=== PATIENT | male | born 1990 | race African-American/Black ===

== ENCOUNTER 2024-10-01 06:10 | Inpatient (IN) | payer OTHER ==
[2024-10-01] MEDS ORDERED: FAMOTIDINE 20 MG/2 ML VIAL IV ONE (07:14)
[2024-10-01] MEDS ORDERED: ONDANSETRON 4 MG/2 ML VIAL ONE ×2 (07:14→14:21)
[2024-10-01] MEDS ORDERED: MORPHINE 4 MG/ML SYR ONE ×3 (07:14→09:19)
[2024-10-01] MEDS ORDERED: NA CHLORIDE 0.9% 1,000 ML ONE (07:14)
[2024-10-01 07:27] LABS: Specific Gravity 1.018 (1.005-1.030); Urine Bilirubin NEGATIVE (Negative); Urine Blood Negative (Negative); Urine Clarity Clear (Clear); Urine Color Light-Yellow (Yellow); Urine Glucose NEGATIVE (Negative); Urine Ketones NEGATIVE (Negative); Urine Microscopic Reflex YN NO UMIC; Urine Nitrite NEGATIVE (Negative); Urine Protein NEGATIVE (Negative); Urine Urobilinogen Normal (Normal)
[2024-10-01 07:28] LABS: Absolute Eosinophils 0.1 K/uL (0-0.5); Absolute Lymphocytes (CBC) 0.7 K/uL (0.7-4.9); Absolute Monocytes 0.4 K/uL (0.1-1.3); Absolute Neutrophil 3.5 K/uL (1.8-8.0); Basophils % 0.2 % (0-1.3); Eosinophils % 1.8 % (0-4.4); Hematocrit 42.6 % (39.6-49.0); Hemoglobin 14.5 g/dL (13.6-17.9); Lymphocytes % 15.6 % (15.3-44.8); MCHC 33.9 g/dL (32.0-36.0); MCV 85.4 fL (80-100); MPV 7.8 fL (7.6-11.3); Monocytes % 7.8 % (3.3-12.3); Neutrophils % 74.6 % (41.7-73.7); Nucleated Red Blood Cells % 0.2 % (0-0); Platelets 159 thou/uL (152-406); RBC Red Blood Cell Count 4.99 M/uL (4.33-5.43); Red Cell Distribution Width 14.7 % (12.1-15.2)
[2024-10-01] MEDS ORDERED: CIPROFLOXACIN 400mg IV 400 MG/200 ML BAG IV ONE (07:28)
[2024-10-01] MEDS ORDERED: METRONIDAZOLE 500mg IVPB 500 MG/100 ML BAG IV ONE (07:29)
[2024-10-01 07:42] LABS: Albumin 3.8 g/dL (3.4-5.0); Anion Gap 7.8 mEq/L (5.0-15.0); Bilirubin Total 1.5 mg/dL (0.2-1.0); Globulin 3.7 g/dL (2.3-3.5); Potassium 3.8 mEq/L (3.5-5.1); Protein, Total 7.5 g/dL (6.4-8.2)
--- NOTE | 2024-10-01 09:11 | ER ---
Nurse's Notes [facility] Name: Gary Francis Age: 34 yrs Sex: Male : 1990 Arrival Date: 10/01/2024 Time: 06:10 Bed 3 Private MD: Diagnosis: Acute appendicitis with localized peritonitis Presentation: 10/01 06:39 Chief complaint: Patient states: C/O AB PAIN (ALL OVER) SINCE THURSDAY.. PT DENIES br2 N/V/D. 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 Coronavirus screen: Client denies travel out of the [place] in the last 14 days. Ebola Screen: Patient denies exposure to infectious person. Initial Sepsis Screen: Does the patient meet any 2 criteria? No. Patient's initial sepsis screen is negative. Does the patient have a suspected source of infection? No. Patient's initial sepsis screen is negative. Risk Assessment: Do you want to hurt yourself or someone else? Patient reports no desire to harm self or others. Onset of symptoms was September 29, 2024. 06:39 Method Of Arrival: Ambulatory br2 06:39 Acuity: NATASHA 3 br2 Historical: - Allergies: 06:41 No Known Allergies; br2 - Immunization history:: Adult Immunizations not up to date. - Infectious Disease History:: Denies. - Social history:: Smoking status: Reported history of juuling and/or vaping. Patient uses alcohol, occasionally. - Family history:: not pertinent. Screenin:07 [facility] ED Fall Risk Assessment (Adult) History of falling in the last 3 months, ay including since admission No falls in past 3 months (0 pts) Confusion or Disorientation No (0 pts) Intoxicated or Sedated No (0 pts) Impaired Gait No (0 pts) Mobility Assist Device Used Yes (1 pt) Altered Elimination No (0 pt) Score/Fall Risk Level 0 - 2 = Low Risk Oriented to surroundings, Maintained a safe environment, Educated pt \T\ family on fall prevention, incl call for assistance when getting out of bed. Abuse screen: Denies threats or abuse. Nutritional screening: No deficits noted. Tuberculosis screening: No symptoms or risk factors identified. Assessment: 07:07 General: Appears in no apparent distress. uncomfortable, Behavior is calm, cooperative. ay Pain: Complains of pain in abdomen. Neuro: Level of Consciousness is awake, alert, obeys commands, Oriented to person, place, time, situation, Speech is normal. Cardiovascular: Denies chest pain, nausea, vomiting, Capillary refill < 3 seconds. Respiratory: Airway is patent Respiratory effort is even, unlabored, Respiratory pattern is regular, symmetrical. GI: Bowel sounds present X 4 quads. Abd is soft Abdomen is tender to palpation in epigastric area. : No signs and/or symptoms were reported regarding the genitourinary system. EENT: No signs and/or symptoms were reported regarding the EENT system. Derm: No signs and/or symptoms reported regarding the dermatologic system. 07:28 General: Appears in no apparent distress. comfortable, Behavior is calm, cooperative, ld1 appropriate for age. Pain: Complains of pain in right upper quadrant and right lower quadrant Pain radiates to left upper quadrant Pain currently is 8 out of 10 on a pain scale. Quality of pain is described as sharp, shooting, throbbing, Pain began 1 day ago. Neuro: Level of Consciousness is awake, alert, obeys commands, Oriented to person, place, time, situation. Cardiovascular: Capillary refill < 3 seconds Patient's skin is warm and dry. Respiratory: Airway is patent Respiratory effort is even, unlabored. GI: Abdomen is round non-distended, Abdomen is tender to palpation in right upper quadrant and right lower quadrant Reports lower abdominal pain, upper abdominal pain. 12:01 Reassessment: Patient appears in no apparent distress at this time. No changes from ld1 previously documented assessment. Patient and/or family updated on plan of care and expected duration. Pain level reassessed. Patient is alert, oriented x 3, equal unlabored respirations, skin warm/dry/pink. Vital Signs: 06:39 BP 132 / 80; Pulse 83; Resp 18; Temp 97.5(TE); Pulse Ox 97% on R/A; Weight 95.25 kg; br2 Height 5 ft. 7 in. ; Pain 10/10; 07:07 BP 131 / 71; Pulse 80; Resp 19; Pulse Ox 99% ; ay 07:28 BP 136 / 82; Pulse 68; Resp 18; Pulse Ox 99% on R/A; Pain 8/10; ld1 09:00 BP 125 / 76; Pulse 71; Resp 18; Pulse Ox 100% on R/A; ld1 12:03 BP 132 / 81; Pulse 79; Resp 18; Pulse Ox 100% on R/A; ld1 06:39 Body Mass Index 32.89 (95.25 kg, 170.18 cm) br2 06:39 Pain Scale: Adult br2 07:28 Pain Scale: Adult ld1 ED Course: 06:20 Patient arrived in ED. [id number] 06:41 Triage completed. br2 07:03 Ernesto Nicole MD is Attending Physician. rosalina 07:07 Onelia Haque, TONIA is Primary Nurse. ay 07:07 Inserted saline lock: 20 gauge in right antecubital area, using aseptic technique. ay 07:27 Urinalysis w/ reflexes Sent. ld1 07:28 No provider procedures requiring assistance completed. ld1 07:28 Patient has correct armband on for positive identification. Placed in gown. Bed in low ld1 position. Call light in reach. Side rails up X2. ekg monitor on. Pulse ox on. NIBP on. Door closed. Noise minimized. Warm blanket given. 08:14 CT Abd/Pelvis - IV Contrast Only In Process Unspecified. EDMS 09:10 Mo Luong MD is Hospitalizing Provider. rosalina 12:02 Patient admitted, IV remains in place. ld1 12:02 Arm band placed on right wrist. ld1 Administered Medications: 07:28 Drug: Famotidine IVP 20 mg IVP once; dilute with 10 mL 0.9% NaCl; give over 2 minutes ld1 Route: IVP; Site: right antecubital; 07:28 Drug: Ondansetron IVP 4 mg IVP once; over 2 minutes Route: IVP; Site: right antecubital;ld1 07:28 Drug: morphine IVP or IV 4 mg IVP once over 4 mins Route: IVP; Infused Over: 4 mins; ld1 Site: right antecubital; 07:28 Drug: NS 0.9% IV 1000 ml IV at 1 bolus Per protocol; to be given as a bolus over 60 ld1 minutes Route: IV; Rate: 1 bolus; Site: right antecubital; 07:34 Drug: metroNIDAZOLE IVPB 500 mg 100 ml IVPB at 200 ml/hr once over 30 mins Volume: 100 iw ml; Route: IVPB; Rate: 200 ml/hr; Infused Over: 30 mins; Site: right antecubital; 08:27 Drug: Ciprofloxacin IVPB 400 mg 200 ml IVPB once over 60 mins Volume: 200 ml; Route: iw IVPB; Infused Over: 60 mins; Site: right antecubital; 09:22 Drug: morphine IVP or IV 4 mg IVP once over 4 mins Route: IVP; Infused Over: 4 mins; ld1 Site: right antecubital; 09:31 Drug: Piperacillin-Tazobactam IVPB 3.375 grams IVPB once over 60 mins; (mix in NS 100 ld1 mL) Route: IVPB; Infused Over: 60 mins; Site: right antecubital; 10:00 Drug: morphine IVP or IV 4 mg IVP once over 4 mins; Verbal order per Dr. Nicole ld1 Route: IVP; Infused Over: 4 mins; Site: right antecubital; Medication: 07:28 VIS not applicable for this client. ld1 Outcome: 09:10 Decision to Hospitalize by Provider. rosalina 12:01 Admitted to OR accompanied by nurse, via stretcher, on monitor, with chart, ld1 12:01 Condition: stable 12:01 Instructed on the need for admit, 12:03 Patient left the ED. ld1 Signatures: Dispatcher [employer] Ernesto Melgar MD MD cha Williams, Irene, RN Cindy Rosario RN RN ld1 Lou Cortesj6 Bhakti Joyce RN RN br2 Onelia Haque RN TONIA brown
--- NOTE | 2024-10-01 09:11 | EDPHYS ---
Physician Documentation [facility] Name: Gary Mcintyreu Age: 34 yrs Sex: Male : 1990 Arrival Date: 10/01/2024 Time: 06:10 Bed 3 Private MD: STEPHANIE Physician Ernesto Nicole HPI: 10/01 07:22 This 34 yrs old Black Male presents to ER via Ambulatory with complaints of Abdominal rosalina Pain. 07:22 The patient presents with abdominal pain in the upper abdomen, in the lower abdomen. rosalina Onset: The symptoms/episode began/occurred 3 day(s) ago. The symptoms do not radiate. Associated signs and symptoms: Pertinent positives: nausea and vomiting, constipation. Modifying factors: The symptoms are alleviated by nothing, the symptoms are aggravated by movement, pressure. Severity of pain: At its worst the pain was moderate in the emergency department the pain is unchanged. The patient has not experienced similar symptoms in the past. Historical: - Allergies: 06:41 No Known Allergies; br2 - Immunization history:: Adult Immunizations not up to date. - Infectious Disease History:: Denies. - Social history:: Smoking status: Reported history of juuling and/or vaping. Patient uses alcohol, occasionally. - Family history:: not pertinent. ROS: 07:22 Constitutional: Negative for fever, chills, and weight loss, Eyes: Negative for injury, rosalina pain, redness, and discharge, ENT: Negative for injury, pain, and discharge, Neck: Negative for injury, pain, and swelling, Cardiovascular: Negative for chest pain, palpitations, and edema, Respiratory: Negative for shortness of breath, cough, wheezing, and pleuritic chest pain, Back: Negative for injury and pain, : Negative for injury, bleeding, discharge, and swelling, MS/Extremity: Negative for injury and deformity, Skin: Negative for injury, rash, and discoloration, Neuro: Negative for headache, weakness, numbness, tingling, and seizure, Psych: Negative for depression, anxiety, suicide ideation, homicidal ideation, and hallucinations, Allergy/Immunology: Negative for hives, rash, and allergies, Endocrine: Negative for neck swelling, polydipsia, polyuria, polyphagia, and marked weight changes, Hematologic/Lymphatic: Negative for swollen nodes, abnormal bleeding, and unusual bruising, 07:22 Abdomen/GI: Positive for abdominal pain, nausea and vomiting, of the right upper quadrant, left upper quadrant, right lower quadrant and left lower quadrant, Exam: 07:22 Constitutional: This is a well developed, well nourished patient who is awake, alert, rosalina and in no acute distress. Head/Face: Normocephalic, atraumatic. Eyes: Pupils equal round and reactive to light, extra-ocular motions intact. Lids and lashes normal. Conjunctiva and sclera are non-icteric and not injected. Cornea within normal limits. Periorbital areas with no swelling, redness, or edema. ENT: Nares patent. No nasal discharge, no septal abnormalities noted. Tympanic membranes are normal and external auditory canals are clear. Oropharynx with no redness, swelling, or masses, exudates, or evidence of obstruction, uvula midline. Mucous membranes moist. Neck: Trachea midline, no thyromegaly or masses palpated, and no cervical lymphadenopathy. Supple, full range of motion without nuchal rigidity, or vertebral point tenderness. No Meningismus. Chest/axilla: Normal chest wall appearance and motion. Nontender with no deformity. No lesions are appreciated. Cardiovascular: Regular rate and rhythm with a normal S1 and S2. No gallops, murmurs, or rubs. Normal PMI, no JVD. No pulse deficits. Respiratory: Lungs have equal breath sounds bilaterally, clear to auscultation and percussion. No rales, rhonchi or wheezes noted. No increased work of breathing, no retractions or nasal flaring. Back: No spinal tenderness. No costovertebral tenderness. Full range of motion. Male : Normal genitalia with no discharge or lesions. Skin: Warm, dry with normal turgor. Normal color with no rashes, no lesions, and no evidence of cellulitis. MS/ Extremity: Pulses equal, no cyanosis. Neurovascular intact. Full, normal range of motion., bilateral aka Neuro: Awake and alert, GCS 15, oriented to person, place, time, and situation. Cranial nerves II-XII grossly intact. Motor strength 5/5 in all extremities. Sensory grossly intact. Cerebellar exam normal. Normal gait. Psych: Awake, alert, with orientation to person, place and time. Behavior, mood, and affect are within normal limits. 07:22 Abdomen/GI: Inspection: distension, that is moderate, Bowel sounds: active, Palpation: moderate abdominal tenderness, in the left upper quadrant, right lower quadrant and left lower quadrant, Liver: no appreciated palpable abnormalities, Hernia: not appreciated, Vital Signs: 06:39 BP 132 / 80; Pulse 83; Resp 18; Temp 97.5(TE); Pulse Ox 97% on R/A; Weight 95.25 kg; br2 Height 5 ft. 7 in. ; Pain 10/10; 07:07 BP 131 / 71; Pulse 80; Resp 19; Pulse Ox 99% ; ay 07:28 BP 136 / 82; Pulse 68; Resp 18; Pulse Ox 99% on R/A; Pain 8/10; ld1 09:00 BP 125 / 76; Pulse 71; Resp 18; Pulse Ox 100% on R/A; ld1 12:03 BP 132 / 81; Pulse 79; Resp 18; Pulse Ox 100% on R/A; ld1 06:39 Body Mass Index 32.89 (95.25 kg, 170.18 cm) br2 06:39 Pain Scale: Adult br2 07:28 Pain Scale: Adult ld1 MDM: 07:03 Medical Screening Exam initiated rosalina 07:24 Differential diagnosis: bowel obstruction, coronary artery disease, cholecystitis, rosalina Cholelithiasis, diverticulitis, gastritis, gastroesophageal reflux disease, Mesenteric ischemia or infarction, non-specific abd pain, pancreatitis, Peptic Ulcer Disease, Perf. Duodenal Ulcer. Data reviewed: vital signs, nurses notes, lab test result(s), radiologic studies, CT scan. Consideration of Admission/Observation Escalation of care including admission/observation considered. I considered the following discharge prescriptions or medication management in the emergency department Medications were administered in the Emergency Department. See MAR. Independent interpretation of the following test(s) in the Emergency Department CT Scan: My interpretation is abd pain. Test considered but Not performed: CT: ct ab/ pel. Historians other than the Patient: pt well informed. Care significantly affected by the following chronic conditions: Obesity, smoker. 10/01 07:06 Order name: CBC with Diff; Complete Time: 07:46 [facility] 10/01 07:06 Order name: CMP; Complete Time: 07:46 [facility] 10/01 07:06 Order name: Lipase; Complete Time: 07:46 [facility] 10/01 07:06 Order name: Urinalysis w/ reflexes; Complete Time: 07:46 [facility] 10/01 09:53 Order name: Urinalysis w/ reflexes EDMS 10/01 09:53 Order name: Basic Metabolic Panel EDMS 10/01 09:53 Order name: Basic Metabolic Panel EDMS 10/01 09:53 Order name: Basic Metabolic Panel EDMS 10/01 09:53 Order name: CBC with Automated Diff EDMS 10/01 09:53 Order name: CBC with Automated Diff EDMS 10/01 09:53 Order name: CBC with Automated Diff EDMS 10/01 09:53 Order name: Magnesium EDMS 10/01 09:53 Order name: Magnesium EDMS 10/01 09:53 Order name: Magnesium EDMS 10/01 09:53 Order name: Phosphorus EDMS 10/01 09:53 Order name: Phosphorus EDMS 10/01 09:53 Order name: Phosphorus EDMS 10/01 07:06 Order name: CT Abd/Pelvis - IV Contrast Only; Complete Time: 11:07 [facility] 10/01 09:53 Order name: CONS Physician Consult EDPA 10/01 07:06 Order name: IV Saline Lock; Complete Time: 07:27 [facility] 10/01 07:06 Order name: Labs collected and sent; Complete Time: 07:28 [facility] 10/01 08:57 Order name: NPO; Complete Time: 09:04 [facility] Administered Medications: 07:28 Drug: Famotidine IVP 20 mg IVP once; dilute with 10 mL 0.9% NaCl; give over 2 minutes ld1 Route: IVP; Site: right antecubital; 07:28 Drug: Ondansetron IVP 4 mg IVP once; over 2 minutes Route: IVP; Site: right antecubital;ld1 07:28 Drug: morphine IVP or IV 4 mg IVP once over 4 mins Route: IVP; Infused Over: 4 mins; ld1 Site: right antecubital; 07:28 Drug: NS 0.9% IV 1000 ml IV at 1 bolus Per protocol; to be given as a bolus over 60 ld1 minutes Route: IV; Rate: 1 bolus; Site: right antecubital; 07:34 Drug: metroNIDAZOLE IVPB 500 mg 100 ml IVPB at 200 ml/hr once over 30 mins Volume: 100 iw ml; Route: IVPB; Rate: 200 ml/hr; Infused Over: 30 mins; Site: right antecubital; 08:27 Drug: Ciprofloxacin IVPB 400 mg 200 ml IVPB once over 60 mins Volume: 200 ml; Route: iw IVPB; Infused Over: 60 mins; Site: right antecubital; 09:22 Drug: morphine IVP or IV 4 mg IVP once over 4 mins Route: IVP; Infused Over: 4 mins; ld1 Site: right antecubital; 09:31 Drug: Piperacillin-Tazobactam IVPB 3.375 grams IVPB once over 60 mins; (mix in NS 100 ld1 mL) Route: IVPB; Infused Over: 60 mins; Site: right antecubital; 10:00 Drug: morphine IVP or IV 4 mg IVP once over 4 mins; Verbal order per Dr. Nicole ld1 Route: IVP; Infused Over: 4 mins; Site: right antecubital; Disposition Summary: 10/01/24 09:10 Hospitalization Ordered Notes: Hospitalization Status: Inpatient Admission rosalina Provider: Mo Luong cha Location: Telemetry/MedSurg (Inpatient) rosalina Condition: Stable rosalina Problem: new rosalina Symptoms: have improved rosalina Bed/Room Type: Standard [facility] Room Assignment: 407(10/01/24 11:30) sp Diagnosis - Acute appendicitis with localized peritonitis rosalina Forms: - Medication Reconciliation Form rosalina - SBAR form rosalina - Leadership Thank You Letter rosalina Signatures: Dispatcher [employer] Ernesto Melgar MD MD cha Pinkerton, Shawna sp Williams, Irene, RN RN iw Sims, Lauren, RN RN ld1 Bhakti Joyce RN RN br2 Corrections: (The following items were deleted from the chart) 11:30 09:10 rosalina sp
[2024-10-01] MEDS ORDERED: NA CHLORIDE 0.9% 100 ML ONE (09:14)
[2024-10-01] MEDS ORDERED: PIPERACIL/TAZO 3.375 GM VIAL IV ONE (09:21)
--- NOTE | 2024-10-01 09:27 | RAD REPORT ---
EXAMINATION: CT Abdomen Pelvis W Contrast CLINICAL INDICATION: Male, 34 years old. ABD PAIN TECHNIQUE: CT abdomen and pelvis was performed, after the administration of IV contrast[facility] Axial, sagittal and coronal reconstructions were obtained. One or more of the following dose reduction techniques were used: Automated exposure control, adjustment of the mA and k V according to patient size, and iterative reconstruction. Unless otherwise specified, incidental findings do not require dedicated imaging follow-up. COMPARISON: No prior exam. FINDINGS: LOWER CHEST: The visualized lung bases are clear. LIVER: Normal in size and contour. No focal lesion. BILIARY SYSTEM: No suspicious abnormalities. SPLEEN: Normal size. No focal lesion. PANCREAS: No mass, ductal dilation, or sarah-pancreatic fluid. ADRENALS: Normal; no mass. KIDNEYS: Normal size and contour. No hydronephrosis. URINARY BLADDER: Unremarkable. GASTROINTESTINAL TRACT: No evidence of free air, significant intra-abdominal free fluid, bowel obstru ction or abscess. APPENDIX: Markedly distended with surrounding fat stranding and mucosal hyperemia. Trace adjacent flu id tracking along the right paracolic gutter. No extraluminal gas or adjacent fluid collections. LYMPH NODES: No lymphadenopathy. MUSCULOSKELETAL: No acute or suspicious osseous abnormality. ADDITIONAL FINDINGS: None. IMPRESSION: Prominent inflammatory changes of the proximal appendix, with adjacent trace free fluid along the rig ht paracolic gutter. No other evidence of complications. THIS REPORT CONTAINS FINDINGS THAT MAY BE CRITICAL TO PATIENT CARE. The findings were verbally commun icated via telephone to Ernesto Nicole MD on 10/01/2024 8:56 AM.
--- NOTE | 2024-10-01 09:41 | P.HP ---
Certification for Inpatient Patient admitted to: Observation With expected LOS: <2 Midnights Patient will require the following post-hospital care: None Practitioner: I am a practitioner with admitting privileges, knowledge of patient current condition, hospital course, and medical plan of care. 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 He denies fever/chills and chest pain. CT abd/pelvis reports "prominent inflammatory changes of the proximal appendix with adjacent trace free fluid along the right paracolic gutter." Laboratory evaluation showing mild left shift lymphocytes 74.[address] Onofre was consulted for surgical intervention. Gary will be admitted to hospitalist service for further evaluation and treatment. - Past Medical/Surgical History -: Reports Enlarged Spleen (2009) Past Surgical History: Patient denies surgical history - Social History Smoking Status: Current every day smoker (Juuling and vaping) Alcohol use: Yes CD- Drugs: No <Frieda Pantoja - Last Filed: 10/01/24 10:01> Date of Service: 10/01/24 <Mo Luong - Last Filed: 10/01/24 16:13> Allergies No Known Allergies Allergy (Unverified 10/01/24 10:05) Review of Systems Other: per HPI <Frieda Pantoja - Last Filed: 10/01/24 10:01> Physical Examination - Physical Exam General: In no apparent distress, Oriented x3 HEENT: Atraumatic, Normocephalic, PERRLA Neck: Supple, 2+ carotid pulse no bruit Respiratory: Clear to auscultation bilaterally, Normal air movement Cardiovascular: Normal pulses, Regular rate/rhythm, Normal S1 S2 Capillary refill: <2 Seconds Gastrointestinal: Normal bowel sounds, Soft and benign, Tenderness (RLQ) Musculoskeletal: No clubbing Integumentary: No rashes Neurological: Normal speech, Normal tone - Studies Laboratory Data (last 24 hrs) 10/01/24 10/01/24 06:58 06:58 WBC 4.70 Hgb 14.5 Hct 42.6 Plt Count 159 Sodium 137 Potassium 3.8 BUN 14 Creatinine 1.11 Glucose 108 H Total Bilirubin 1.5 H AST 17 ALT 43 Alkaline Phosphatase 58 Lipase 24 <Frieda Pantoja - Last Filed: 10/01/24 10:01> - Studies Laboratory Data (last 24 hrs) 10/01/24 10/01/24 06:58 06:58 WBC 4.70 Hgb 14.5 Hct 42.6 Plt Count 159 Sodium 137 Potassium 3.8 BUN 14 Creatinine 1.11 Glucose 108 H Total Bilirubin 1.5 H AST 17 ALT 43 Alkaline Phosphatase 58 Lipase 24 <Mo Luong - Last Filed: 10/01/24 16:13> Assessment and Plan - Plan Assessment and Plan RLQ pain 2/2 Acute appendicitis Nausea/vomitting -Admit under observation, afebrile -CT abd/pelvis reports "prominent inflammatory changes of the proximal appendix with adjacent trace free fluid along the right paracolic gutter." -pain control, antiemetic -zosyn IV -Consult Dr. Onofre -NPO Smoking abuse -Reports Juuling/vaping -cessation education provided DVT ppx SCD Full code LOS 24 hour OBS Discharge Plan: Home Plan to discharge in: 24 Hours - Advance Directives Does patient have a Living Will: No Does patient have a Durable POA for Healthcare: No <Frieda Pantoja - Last Filed: 10/01/24 10:01> Physician Review Additional Text: I have personally seen and evaluated the patient. I have reviewed the history, physical exam findings, and assessment provided by Chandra Pantoja CONTRACT ADMINISTRATION SPECIALIST. Care with the plan of care as documented. Seen resting comfortably, ERNESTINE drain in place. Continue to monitor <Mo Luong - Last Filed: 10/01/24 16:13>
[2024-10-01] MEDS: NA CHLORIDE 0.9% 1,000 ML IV SCH (10:00)
[2024-10-01] MEDS: Ringers Lactate 1,000 ML IV ONE (11:50)
[2024-10-01] MEDS ORDERED: ROCURONIUM 50 MG/5 ML VIAL IV ONE (13:04)
[2024-10-01] MEDS ORDERED: propofoL 200 MG/20 ML VIAL IV ONE ×2 (13:04→14:14)
[2024-10-01] MEDS ORDERED: MIDAZOLAM HCL 2 MG/2 ML INJ ONE (13:04)
[2024-10-01] MEDS ORDERED: FENTANYL CITR 100 MCG/2 ML ONE (13:04)
[2024-10-01] MEDS ORDERED: LIDOCAINE 2% MPF 5 ML VIAL ONE (13:05)
[2024-10-01] MEDS: SUCCINYLCHOLINE 20 MG/ML (10 ML) IV ONE (13:14)
[2024-10-01] MEDS: SUGAMMADEX SODIUM 200 MG/2 ML VIAL IV ONE (13:14)
[2024-10-01] MEDS: CEFOXITIN SODIUM 1 GM/VIAL ONE (13:52)
--- NOTE | 2024-10-01 13:58 | CON ---
Date of Consultation: 10/01/2024 Reason For Service: Acute appendicitis. History Of Present Illness: This is the case of a 34-year-old patient who comes to us with acute abd ominal pain, right lower quadrant, associated with nausea and vomiting since about 3 days ago. The p ain got worse to the point that today he could not take it anymore and came to the ER and found to verde ve on CAT scan appendicitis with fluid around the area, prominent inflammatory changes. He denies an y dysuria, hematuria, hematochezia, melena. He denies any recent traveling out of the country. He d enies any family members sick at home. Denies any trauma. No previous colonoscopies. Allergies: NONE. Medical History: Enlarged spleen. Past Surgical History: None. Social History: He smokes , he was advised importance of stopping and drinks alcohol occas ionally. Family History: Noncontributory. Review of Systems: As above. Ten points otherwise unremarkable. Physical Examination: Vital Signs: Reviewed. Patient is awake, alert, and oriented x3. HEENT: Pupils are equal and reactive. Anicteric. Neck: Supple. Chest: Clear. Abdomen: Right lower quadrant tenderness with guarding, rebound, and peritonitis. Genitalia/Rectal: Deferred. Extremities: Good capillary refill. Good peripheral pulses. Laboratory Data: WBC count is 4.7 with neutrophils 74.6. Potassium 3.8, glucose 108. UA is negativ e. CAT scan of the abdomen and pelvis interpreted by as markedly distended with surro unding fat stranding around the appendix, trace adjacent fluid. No extraluminal gas. Assessment: Acute appendicitis, possible rupture. The patient was booked for emergent laparoscopic, possible open appendectomy with benefits, alternatives, and risks including, but not limited to infe ction, bleeding, damage to adjacent structures, anesthesia complication, nonhealing wound, VA, and ev en . He also understands the chance of intra-abdominal abscess. He understood. The patient wa s emergently booked in OR. HM/MODL Voice ID: [id number] Report ID: [id number]
--- NOTE | 2024-10-01 14:21 | P.BOP ---
Preoperative diagnosis: acute appendicitis, peritonitis Postoperative diagnosis: same plus suppurative appendicitis Primary procedure: Laparoscopic appendectomy Estimated blood loss: <10cc Specimen: appendix Findings: partially retrocecal suppurative appendicitis Anesthesia: General Complications: None Drain(s): ERNESTINE drain Transferred to: Recovery Room Condition: Good
[2024-10-01] MEDS: MEPERIDINE HCL 25 MG/ML SYR ONE (14:45)
[2024-10-01 15:53] VITALS: BMI 32.8
[2024-10-01] MEDS: PIPER TAZO 3.375 GM in NA CHLORIDE 0.9% 100 ML IV SCH (16:53)
--- NOTE | 2024-10-01 17:03 | OP ---
Date of Procedure: 10/01/2024 Surgeon: Ryne Onofre MD Preoperative Diagnoses: Acute abdominal pain, peritonitis, acute appendicitis. Postoperative Diagnoses: Acute abdominal pain, peritonitis, acute appendicitis, suppurative appendic itis. Procedure: Laparoscopic appendectomy. Anesthesia: General plus local. Estimated Blood Loss: Less than 10 cc. Findings: The patient has peritonitis with a partially retrocecal appendix. The white line of Toldt had to be mobilized to be able to remove the appendix. There was inflammation and peritonitis prese nt and once again suppurative appendicitis. Complications: None. Drain: ERNESTINE #10. Indications: This is the case of a 34-year-old patient who comes to us with acute abdominal pain. T he benefits, alternatives, and risks of laparoscopic possible open appendectomy fully explained, whic h include, but not limited to infection, bleeding, damage to adjacent structures, anesthesia complica tion, abscess, DC, even . He also understands this may not relieve his symptoms, he might need more than one surgical intervention. He understood, signed consent. Description Of Procedure: The patient brought to the operating room, placed in supine position. Ane sthesia was done without complication. Abdominal area was prepped and draped in sterile fashion. Ma rcaine 0.5% was injected for local anesthetic followed by sharp incision of the skin in the infraumbi lical region. Incision was carried down to fascia, which was opened under direct vision. Peritoneum was encountered, opened under direct vision. Vicryl #1 placed inside the fascia. Elli trocar was carefully introduced. Pneumoperitoneum was obtained. I placed 2 more trocars 5 mm each one of them in the suprapubic and left lower quadrant under direct visualization. This allowed me to take a loo k at the area of the right lower quadrant. A lot of inflammation around the appendix. It was a part ially retrocecal appendix. For me to get this appendix out, I had to mobilize the cecum, and thus wi th the help of LigaSure, we were able to open the white lines of Toldt, protect the ureters at all ti mes, mobilized the cecum and then that freed off a large inflamed appendix. With the help of the Lig aSure, we also took the mesoappendix. The base of appendix was free, window created and then we proc eeded to place the Endo-YENNIFER 45 mm nonvascular to transect that area. Appendix removed from abdominal cavity using EndoCatch through umbilical incision. No bleeding. No bowel leak. Area was profusely irrigated. Due to all that inflammation process, we left a ERNESTINE drain in that area exiting through on e of the trocar sites and connected to bulb suction. The patient tolerated the procedure well. Once again, the area was inspected, no bleeding, so I proceeded to remove the trocars under direct vision , deflated pneumoperitoneum, closed the fascia with #1 Vicryl, irrigated subcutaneous tissue, closed that with 3-0 chromic and skin with aby. Sponge count, instrument counts correct. ERNESTINE was secure d with 3-0 nylon. The patient on his way to recovery in stable condition. SAMANTHA/ALISSA Voice ID: [id number] Report ID: [id number]
[2024-10-01] MEDS: MORPHINE 2 MG/ML SYR IV PRN (20:23)
[2024-10-02 06:00] LABS: Absolute Lymphocytes (CBC) 0.8 K/uL (0.7-4.9); Absolute Monocytes 0.4 K/uL (0.1-1.3); Basophils % 0.2 % (0-1.3); Eosinophils % 0.6 % (0-4.4); Hematocrit 38.1 % (39.6-49.0); Hemoglobin 13.1 g/dL (13.6-17.9); MCH 29.7 pg (27.0-35.0); MCHC 34.4 g/dL (32.0-36.0); MCV 86.2 fL (80-100); MPV 7.9 fL (7.6-11.3); Monocytes % 9.3 % (3.3-12.3); Neutrophils % 70.9 % (41.7-73.7); Nucleated Red Blood Cells % 0.3 % (0-0); Platelets 151 thou/uL (152-406); RBC Red Blood Cell Count 4.42 M/uL (4.33-5.43); Red Cell Distribution Width 14.6 % (12.1-15.2)
[2024-10-02 06:07] LABS: Anion Gap 9.4 mEq/L (5.0-15.0); Magnesium 2.1 mg/dL (1.6-2.4); Potassium 3.4 mEq/L (3.5-5.1)
[2024-10-02] MEDS: HYDROCODONE/APAP 5/325 MG TAB PO PRN (09:40)
--- NOTE | 2024-10-02 12:46 | P.PN ---
Subjective Date of Service: 10/02/24 Chief Complaint: Acute appendicitis Subjective: Tolerating diet, Ambulating, Improving Review of Systems Respiratory: Unremarkable Cardiovascular: Unremarkable Gastrointestinal: As per HPI Physical Examination - Vital Signs Temperature: 98.6 F Blood Pressure: 122/71 Pulse: 69 Respirations: 17 Pulse Ox (%): 94 - Physical Exam General: Alert, In no apparent distress, Oriented x3, Cooperative HEENT: Normocephalic, PERRLA, EOMI, Sclerae nonicteric Neck: Supple Respiratory: Normal air movement Cardiovascular: No edema, Normal pulses Gastrointestinal: Soft and benign Musculoskeletal: No erythema, No tenderness, No warmth Integumentary: No rashes, No breakdown Neurological: Normal speech - Studies Laboratory Data (last 24 hrs) 10/02/24 10/02/24 05:24 05:24 WBC 4.30 Hgb 13.1 L D Hct 38.1 L Plt Count 151 L Sodium 138 Potassium 3.4 L BUN 12 Creatinine 1.43 H Glucose 159 H Phosphorus 3.0 Magnesium 2.1 Assessment And Plan - Plan OK to D/H with ERNESTINE instructions AMbulate PO abx for a week F/u my office thursday or . Pt advise to call my office for timing.
--- NOTE | 2024-10-02 14:22 | P.PN ---
Date of Service: 10/02/24 Subjective: Doing better today. Asking to take a shower. We advised him to slowly eat and drink something. He says he got up to use the restroom. We discussed covering the ERNESTINE drain with Saran wrap or transparent dressing while in the shower. Denies fevers and chills. Pain is rated 5 out of 10. Review of Systems Other: 10 point review of system otherwise unremarkable Physical Examination - Physical Exam General: In no apparent distress, Oriented x3 HEENT: Atraumatic, Normocephalic, PERRLA Neck: Supple, 2+ carotid pulse no bruit Respiratory: Clear to auscultation bilaterally, Normal air movement Cardiovascular: Normal pulses, Regular rate/rhythm, Normal S1 S2 Capillary refill: <2 Seconds Gastrointestinal: Normal bowel sounds, Soft and benign, Tenderness (RLQ) Musculoskeletal: No clubbing Integumentary: No rashes Neurological: Normal speech, Normal tone - Studies Laboratory Data (last 24 hrs) 10/01/24 10/01/24 06:58 06:58 WBC 4.70 Hgb 14.5 Hct 42.6 Plt Count 159 Sodium 137 Potassium 3.8 BUN 14 Creatinine 1.11 Glucose 108 H Total Bilirubin 1.5 H AST 17 ALT 43 Alkaline Phosphatase 58 Lipase 24 - Studies Laboratory Data (last 24 hrs) 10/01/24 10/01/24 06:58 06:58 WBC 4.70 Hgb 14.5 Hct 42.6 Plt Count 159 Sodium 137 Potassium 3.8 BUN 14 Creatinine 1.11 Glucose 108 H Total Bilirubin 1.5 H AST 17 ALT 43 Alkaline Phosphatase 58 Lipase 24 Assessment and Plan RLQ pain 2/2 Acute suppurative appendicitis Nausea/vomitting -Changed to inpatient -Improved -pain control, antiemetic -Will switch over to oral Cipro and oral Flagyl for discharge -On clear liquid diet and advance as tolerate -Appreciate Dr. Onofre help Hypokalemia -Replace potassium Smoking abuse -Reports Juuling/vaping -cessation education provided DVT ppx SCD Full code LOS 24 hour OBS Discharge Plan: Home Plan to discharge in: 24 Hours
[2024-10-02] MEDS: POTASSIUM 25 MEQ EFFERV TAB PO ONE ×2 (14:57→20:31)
[2024-10-02] MEDS ORDERED: SENOSIDES 8.6 MG TAB PO PRN (15:21)
[2024-10-02] MEDS: CIPROFLOXACIN HCL 500 MG TAB PO SCH (20:31)
[2024-10-02] MEDS: metroNIDAZOLE 500 MG TABLET PO SCH (20:32)
[2024-10-03 04:22] VITALS: O2SAT 96
[2024-10-03 06:31] LABS: Absolute Eosinophils 0.1 K/uL (0-0.5); Absolute Lymphocytes (CBC) 0.7 K/uL (0.7-4.9); Absolute Monocytes 0.3 K/uL (0.1-1.3); Absolute Neutrophil 2.1 K/uL (1.8-8.0); Basophils % 0.3 % (0-1.3); Eosinophils % 2.9 % (0-4.4); Hematocrit 38.2 % (39.6-49.0); Lymphocytes % 21.8 % (15.3-44.8); MCV 85.5 fL (80-100); MPV 7.5 fL (7.6-11.3); Monocytes % 9.1 % (3.3-12.3); Neutrophils % 65.9 % (41.7-73.7); Nucleated Red Blood Cells % 0.1 % (0-0); Platelets 146 thou/uL (152-406); RBC Red Blood Cell Count 4.47 M/uL (4.33-5.43); Red Cell Distribution Width 14.5 % (12.1-15.2)
[2024-10-03 06:48] LABS: Anion Gap 8.7 mEq/L (5.0-15.0); Magnesium 2.1 mg/dL (1.6-2.4); Phosphorus 2.6 mg/dL (2.5-4.9); Potassium 3.7 mEq/L (3.5-5.1)
[2024-10-03] MEDS: POTASSIUM 25 MEQ EFFERV TAB PO ONE (08:12)
[2024-10-03] MEDS: SENOSIDES 8.6 MG TAB PO SCH (08:12)
[2024-10-03 12:07] VITALS: BP 146/78; TEMP 98.3
--- NOTE | 2024-10-03 15:03 | P.DS ---
Admission Date: 10/02/24 Discharge Date: 10/03/24 Disposition: ROUTINE DISCHARGE Discharge Condition: GOOD Reason for Admission: Acute appendicitis Hospital Course: 34-year-old male with a history of vaping presented with complaints of right lower quadrant pain and was found to have appendicitis on CT scan. He was taken for emergency surgery where he was found to have suppurative appendicitis. A ERNESTINE drain was placed. He has been instructed to follow-up with his surgeon upon discharge. In addition he was started on IV antibiotics and eventually transitioned over to oral antibiotic. His blood counts remained stable during his admission. He had no other acute issues during his stay. He is medically optimized for discharge Vital Signs/Physical Exam: Temp Pulse Resp BP Pulse Ox 98.3 F 72 16 146/78 H 96 10/03/24 12:00 10/03/24 12:00 10/03/24 12:00 10/03/24 12:00 10/03/24 12:00 General: Alert, In no apparent distress HEENT: Atraumatic, Normocephalic Neck: Supple Respiratory: Clear to auscultation bilaterally, Normal air movement Cardiovascular: No edema, Normal pulses Capillary refill: <2 Seconds Gastrointestinal: Normal bowel sounds, Other (ERNESTINE drain with serosanguineous drainage) Musculoskeletal: No clubbing, No swelling Integumentary: No rashes, No breakdown Neurological: Normal gait, Normal speech Lymphatics: No axilla or inguinal lymphadenopathy Laboratory Data at Discharge: WBC 3.20 thou/uL (4.3-10.9) L 10/03/24 06:05 Hgb 13.0 g/dL (13.6-17.9) L 10/03/24 06:05 Hct 38.2 % (39.6-49.0) L 10/03/24 06:05 Plt Count 146 thou/uL (152-406) L 10/03/24 06:05 Sodium 139 mEq/L (136-145) 10/03/24 06:05 Potassium 3.7 mEq/L (3.5-5.1) 10/03/24 06:05 BUN 10 mg/dL (7-18) 10/03/24 06:05 Creatinine 0.99 mg/dL (0.70-1.30) 10/03/24 06:05 Glucose 109 mg/dL (74-106) H 10/03/24 06:05 Phosphorus 2.6 mg/dL (2.5-4.9) 10/03/24 06:05 Magnesium 2.1 mg/dL (1.6-2.4) 10/03/24 06:05 Total Bilirubin 1.5 mg/dL (0.2-1.0) H 10/01/24 06:58 AST 17 U/L (15-37) 10/01/24 06:58 ALT 43 U/L (16-61) 10/01/24 06:58 Alkaline Phosphatase 58 U/L (45-117) 10/01/24 06:58 Lipase 24 U/L (13-75) 10/01/24 06:58 Home Medications: Ciprofloxacin HCl [Cipro 500 MG Tablet] 500 mg PO BID 5 Days tab 10/03/24 Hydrocodone 5/APAP 325 [[place] 5/325] 1 tab PO Q8H PRN 3 Days #7 tab 10/03/24 metroNIDAZOLE [Flagyl*] 500 mg PO TID 5 Days 10/03/24 New Medications: Ciprofloxacin HCl [Cipro 500 MG Tablet] 500 mg PO BID 5 Days tab metroNIDAZOLE [Flagyl*] 500 mg PO TID 5 Days Hydrocodone 5/APAP 325 [[place] 5/325] 1 tab PO Q8H PRN 3 Days #7 tab PRN Reason: Pain Followup: Ryne Onofre MD [ACTIVE - CAN ADMIT] - 1-2 Weeks NONE,NONE [Primary Care Provider] -
== END 2024-10-03 14:42 | disposition home or self-care (01) | DRG 399 ==
LOC: ER 06:10 → ERHOLD 09:48 → 4TH 12:02 → OBSVTOIN 10-02 09:59
PROVIDERS: ADMIT Family Medicine; ATTEND Family Medicine
PROC: 0DTJ4ZZ Resection of Appendix, Percutaneous Endoscopic Approach (ICD-10-PCS; principal; 2024-10-02)
DX: K35.30 Acute appendicitis with localized peritonitis, without perforation or gangrene (principal); R11.2 Nausea with vomiting, unspecified; F17.290 Nicotine dependence, other tobacco product, uncomplicated; Z71.6 Tobacco abuse counseling
CPT/HCPCS: 36415; 74177; 80048; 80053; 81003; 83690; 83735; 84100; 85025; 88304; 96374; 96375; 99285; A4314; G0378; J0694; J0744; J2003; J2175; J2250; J2270; J2405; J2543; J2704; J3010; J7030; J7120; Q9967